=== PATIENT | male | born 1970 | race Caucasian/White ===

== ENCOUNTER 2021-05-03 15:11 | Emergency (ER) | payer OTHER ==
[2021-05-03 15:24] VITALS: BMI 30.4
[2021-05-03 18:36] LABS: BASO % 0.5 % (0-2.0); EOS % 1.4 % (0-4.5); HEMATOCRIT 37.3 % (35.4-49); HEMOGLOBIN 13.1 GM/dL (11.7-16.9); LYMPH % 21.7 % (8-40); MCHC 35.2 g/dl (32.0-35.9); MEAN CELL VOLUME 85.4 fl (80-96); MEAN PLT VOLUME 7.9 fl (7.5-11.1); MONO % 7.2 % (3.8-10.2); NEUT % 69.2 % (42.8-82.8); PLATELET COUNT 257 10^3/uL (134-434); RBC 4.37 M/mm3 (4.00-5.60); RDW 12.6 % (11.9-15.9); WHITE BLOOD COUNT 7.7 K/mm3 (4.0-10.0)
[2021-05-03 18:46] LABS: CHLORIDE 105 mmol/L (98-107); SODIUM 137 mmol/L (136-145)
[2021-05-03 18:51] LABS: ALBUMIN 3.9 g/dl (3.4-5.0); CALCIUM 9.5 mg/dL (8.5-10.1)
[2021-05-03 18:52] LABS: ANION GAP 4 MMOL/L (8-16); BLOOD UREA NITROGEN 10.2 mg/dL (7-18); CO2 28 mmol/L (21-32); GLUCOSE,RANDOM 86 mg/dL (74-106)
[2021-05-03 18:55] LABS: SGOT/AST 50 U/L (15-37); SGPT/ALT 60 U/L (13-61)
[2021-05-03 18:56] LABS: TOT PROT 6.7 g/dl (6.4-8.2)
[2021-05-03 18:57] LABS: BILIRUBIN,TOTAL 0.8 mg/dL (0.2-1)
[2021-05-03 18:58] LABS: ALK PHOS 76 U/L (45-117)
[2021-05-03 20:51] LABS: PH,URINE 7.5 (5.0-8.0); URINE APPEARANCE CLEAR; URINE BILIRUBIN NEGATIVE (NEGATIVE); URINE COLOR YELLOW; URINE GLUCOSE (UA) NEGATIVE (NEGATIVE); URINE KETONE NEGATIVE (NEGATIVE); URINE LEUK ESTERASE NEGATIVE (NEGATIVE); URINE NITRITE NEGATIVE (NEGATIVE); URINE PROTEIN NEGATIVE (NEGATIVE)
[2021-05-03 21:00] LABS: COCAINE, UR NEGATIVE (NEGATIVE); OPIATES, URI NEGATIVE (NEGATIVE); PHENCYCLIDINE,URINE NEGATIVE (NEGATIVE); URINE BARBITURATES NEGATIVE (NEGATIVE)
[2021-05-03 21:01] LABS: METHADONE, UR NEGATIVE (NEGATIVE); URINE BENZODIAZEPINES NEGATIVE (NEGATIVE)
[2021-05-03 21:02] LABS: URINE AMPHETAMINES NEGATIVE (NEGATIVE)
[2021-05-04 07:33] VITALS: BP 150/99; PULSE 68; TEMP 97.9
== END 2021-05-04 11:03 | disposition home or self-care (01) ==
LOC: JER 15:11
DX: R45.851 Suicidal ideations (principal); F31.9 Bipolar disorder, unspecified; R44.3 Hallucinations, unspecified
CPT/HCPCS: 36415; 80053; 80178; 80307; 81003; 85025; 93005; 93010; 99284-25